=== PATIENT | male | born 1980 | race Caucasian/White ===

== ENCOUNTER → 2020-01-03 12:32 | Outpatient (CLI) | payer BC ==
--- NOTE | ~2020-01-03 | ST ---
PATIENT:DANI NUNO MEDICAL RECORD: [id number] SEX: M LOCATION:[facility] ORDER #: ADMISSION DATE: 01/03/20 AGE OF PATIENT: 39 REFERRING PHYSICIAN: INTERPRETING PHYSICIAN: MALKA BERGER MD DATE OF SERVICE: 01/03/2020 PROCEDURE: Treadmill stress test. Baseline ECG is normal. Exercised for 9 minutes 15 seconds on Prasanna protocol. Maximum heart rate 93 beats per minute, greater than 85% max predicted. No ECG changes for ischemia. No symptoms of ischemia. Normal blood pressure response to exercise. No arrhythmia is noted. Fair to good exercise tolerance for age. TRANSINT:[id number] Voice Confirmation ID: [id number] DOCUMENT ID: [id number] MALKA BERGER MD CC: [id number] DICTATION DATE: 01/04/20 1440 APPLICATION SUPPORT ANALYST: 01/05/20 0053 DEP CLI 01/03/20 [id number] [place] [address]
--- NOTE | 2020-01-06 10:50 | EC ---
PATIENT:DANI NUNO DATE OF SERVICE: 01/03/20 SEX: M MEDICAL RECORD: [id number] DATE OF : 76 LOCATION:[facility], [facility] AGE OF PATIENT: 39 ADMISSION DATE: 01/03/20 REFERRING PHYSICIAN: INTERPRETING PHYSICIAN: MALKA BERGER MD ECHOCARDIOGRAM REPORT ECHO CHARGES 4 ECHO COMPLETE Date: 01/03/20 CLINICAL DIAGNOSIS: HEART MURMUR ECHOCARDIOGRAPHIC MEASUREMENTS (adult normal given) AC root (d.<3.7cm) 3.7 cm LV Septum d (<1.2 cm> 1.6 cm Valve Excursion 1.7 cm LV Septum (systole) 1.7 cm Left Atria (s.<4.0cm> 3.6 cm LVPW d(<1.2cm) 1.4 cm RV (d.<2.3cm) 3.5 cm LVPW (sytole) 1.6 cm LV diastole(<5.6CM) 4.7 cm MV E-F(>70mm/sec) cm LV systole 3.3 cm LVOT Diameter 2.4 cm MV exc.(>10mm) 1.6 cm Est.ejection fraction (50-75%) % DOPPLER: LVIT cm/sec A 69.0 cm/sec E 88.0 cm/sec LA cm/sec RVSP 20 mmHg LVOT 94 cm/sec AOP1/2T m/s Asc. Ao 111 cm/sec RVOT 71 cm/sec RA cm/sec PA 86 cm/sec AV Gradient Peak 4.96 mmHg AV Mean 2.63 mmHg AV Area 4.0 cm MV Gradient Peak 2.80 mmHg MV Mean 1.51 mmHg MV Area cm COMMENTS: Mrp Controller: 2 JENN DENNEY Extended Insurance Clerk: 3 Dr. Kessler TAPE# PACS Pericardial Effusion N DATE OF SERVICE: Adequate 2D, color flow imaging, spectral Doppler, and M-Mode. LVH is present. LV internal dimension is normal. Wall motion is normal. EF is greater than or equal to 55%. Aortic valve is tricuspid. No evidence of stenosis by Doppler interrogation. Left atrium is normal at 3.6 cm. Mitral valve shows no prolapse. Trace MR. Right-sided chambers are grossly normal. Trace TR. ECHOCARDIOGRAM REPORT [id number] DANI NUNO TRANSINT:[id number] Voice Confirmation ID: [id number] DOCUMENT ID: [id number] MALKA BERGER MD at 1050 CC: [id number] DICTATION DATE: 01/05/20 113 AUTOMATION MACHINE OPERATOR: 01/05/20 1751 DEP CLI 01/03/20 [id number] [place] [address]
== END | disposition home or self-care (01) ==
LOC: D.HCCECHO 12:32
PROVIDERS: ATTEND Internal Medicine Interventional Cardiology
DX: R07.9 Chest pain, unspecified (principal); R01.1 Cardiac murmur, unspecified